=== PATIENT | male | born 1970 | race Caucasian/White ===

== ENCOUNTER 2016-11-25 14:45 | Inpatient (IN) | payer OTHER ==
[~2016-11-25] VITALS: Ht 180.3 cm; Wt 125.2 kg
[~2016-11-25 14:45] MED LIST: ALBUTEROL2.5 MG/3 M INH; ALDACTONE 25MG25 MG PO; ALLERGY RELIEF10 M3 PO; ASPIRIN 325MG325 MG PO; BUSPIRONE HCL15 MG PO; CELEXA40 MG PO; COREG 12.5MG12.5 MG PO; CRESTOR20 MG PO; ENTRESTO PO; FISH OIL 1,0001 EACH PO; FLUTICASONE PRO16 GM INH; HABITROL 14 MG P1 EA TD; HYDROCODON-ACE1 EAC6 PO; MIRALAX17 GM PO; MULTIVITAMINS1 EAC1 PO; NEURONTIN 300300 MG PO; PLAVIX 75 MG TA75 MG PO; PRAVACHOL40 MG PO; SENOKOT-S TABL1 EACH PO; TYLENOL 325MG325 MG PO; VENTOLIN HFA 66.7 GM INH; VITAMIN D350000 UNIT PO
[2016-11-26 02:57] LABS: HEMOGLOBIN 9.8 gm/dl (14.0-17.5); RED BLOOD COUNT 3.42 M/UL (4.20-5.50); WHITE BLOOD COUNT 4.6 K/UL (4.5-11.0)
[2016-11-26 02:59] LABS: BUN/CREATININE RATIO 16 (0-10)
[2016-11-27 06:22] LABS: BUN/CREATININE RATIO 18 (0-10)
[2016-11-27] MEDS ORDERED: LEVAQUIN750 MG PO (16:56)
[2016-11-27] MEDS ORDERED: LASIX40 MG PO (16:56)
[2016-11-27] MEDS ORDERED: LISINOPRIL2.5 MG PO (16:57)
[2016-11-27] MEDS ORDERED: ALDACTONE25 MG PO (16:57)
[2016-11-27] MEDS ORDERED: K-DUR TAB 20 M20 MEQ PO (16:58)
== END 2016-11-27 17:32 | disposition home or self-care (01) | DRG 166 ==
LOC: M/S 14:45 → MED SURG 4 16:29
PROVIDERS: Internal Medicine Pulmonary Disease; ADMIT Internal Medicine Infectious Disease
PROC: 0B9C8ZX Drainage of Right Upper Lung Lobe, Via Natural or Artificial Opening Endoscopic, Diagnostic (ICD-10-PCS; principal; 2016-11-26 08:15)
DX: J44.0 Chronic obstructive pulmonary disease with (acute) lower respiratory infection (principal); J96.01 Acute respiratory failure with hypoxia; I50.23 Acute on chronic systolic (congestive) heart failure; J18.9 Pneumonia, unspecified organism; I13.0 Hypertensive heart and chronic kidney disease with heart failure and stage 1 through stage 4 chronic kidney disease, or unspecified chronic kidney disease; E87.6 Hypokalemia; I25.5 Ischemic cardiomyopathy; Z95.810 Presence of automatic (implantable) cardiac defibrillator; I25.10 Atherosclerotic heart disease of native coronary artery without angina pectoris; Z98.61 Coronary angioplasty status; E78.5 Hyperlipidemia, unspecified; Z85.72 Personal history of non-Hodgkin lymphomas; Z88.2 Allergy status to sulfonamides; Z79.82 Long term (current) use of aspirin; Z79.02 Long term (current) use of antithrombotics/antiplatelets; Z79.899 Other long term (current) drug therapy; F17.210 Nicotine dependence, cigarettes, uncomplicated; Z83.3 Family history of diabetes mellitus; Z82.49 Family history of ischemic heart disease and other diseases of the circulatory system; Y95 Nosocomial condition; D64.9 Anemia, unspecified; E11.22 Type 2 diabetes mellitus with diabetic chronic kidney disease; N18.9 Chronic kidney disease, unspecified; F32.9 Major depressive disorder, single episode, unspecified; G89.29 Other chronic pain; M54.9 Dorsalgia, unspecified; G47.33 Obstructive sleep apnea (adult) (pediatric); I27.2 Other secondary pulmonary hypertension
CPT/HCPCS: 36415; 36600; 71020; 80048; 80053; 82550; 82553; 82803; 83880; 84132; 84484; 85025; 86140; 87015; 87040; 87070; 87102; 87116; 87205; 93005; J1335; J1650; J1940; J2250; J7040; J7050

== ENCOUNTER → 2020-04-10 | Outpatient (CLI) | payer OTHER ==
[~2020-04-10] MED LIST changes: +ALDACTONE25 MG PO; +BUSPIRONE HCL30 MG PO; +CETIRIZINE HCL10 MG PO; +COLESTID1 GM PO; +COREG 25MG TAB25 MG PO; +CYMBALTA60 MG PO; +GABAPENTIN600 MG PO; +K-DUR TAB 20 M20 MEQ PO; +KLONOPIN TAB 00.5 MG PO; +LASIX40 MG PO; +LEVAQUIN750 MG PO; +LISINOPRIL2.5 MG PO; +TRAZODONE HCL100 MG PO; +VITAMIN B-121000 MCG PO; +ZOLOFT100 MG PO
== END ==
LOC: HEART 5 09:00
DX: I25.10 Atherosclerotic heart disease of native coronary artery without angina pectoris (principal); Z98.61 Coronary angioplasty status; R94.39 Abnormal result of other cardiovascular function study
CPT/HCPCS: 78452; A9502; J2785

== ENCOUNTER → 2020-12-29 | Outpatient (CLI) | payer OTHER | LOC: ECHO 08:43 | DX: I50.22 Chronic systolic (congestive) heart failure (principal); I25.5 Ischemic cardiomyopathy; I51.3 Intracardiac thrombosis, not elsewhere classified; I07.1 Rheumatic tricuspid insufficiency; Z95.0 Presence of cardiac pacemaker | CPT/HCPCS: ECHO; 93306; Q9957 ==

== ENCOUNTER → 2021-06-29 | Outpatient (CLI) | payer OTHER | LOC: LAB 12:01 | DX: Z51.81 Encounter for therapeutic drug level monitoring (principal); Z79.01 Long term (current) use of anticoagulants; D68.59 Other primary thrombophilia; Z86.79 Personal history of other diseases of the circulatory system | CPT/HCPCS: 36415; 85610 ==